=== PATIENT | male | born 1970 | race Caucasian/White ===

== ENCOUNTER 2017-10-17 06:38 | Day surgery (SDC) | payer OTHER ==
[2017-10-17] MEDS: CEFAZOLIN 2 GM/50 ML (PMX) 50 ML IVPB (06:00)
[2017-10-17] MEDS ORDERED: ACETAMINOPHEN 1000 MG/100 ML IVPB (07:00)
[2017-10-17] MEDS ORDERED: BUPIVACAINE 0.25% (MPF) 30 ML INJ (07:12)
[2017-10-17 07:35] LABS: ADD MAN DIFF? NO
[2017-10-17] MEDS: SOD CHLORIDE 0.9% 1,000 ML IV (07:35)
[2017-10-17 07:39] LABS: WHITE BLOOD COUNT 4.3 10^3/ul (4.8-10.8)
[2017-10-17 07:39] LABS: BASOPHILS % 0.5 % (0.0-2.0); EOSINOPHILS # 0.2 10^3/ul (0.0-0.5); EOSINOPHILS % 5.1 % (0.0-7.0); HEMATOCRIT 39.6 % (42.0-52.0); HEMOGLOBIN 13.7 g/dl (14.0-18.0); LYMPHOCYTES # 1.5 10^3/ul (0.8-2.9); LYMPHOCYTES % 34.3 % (15.0-51.0); MEAN CORPUSCULAR HEMOGLOBIN 30.4 pg (29.0-33.0); MEAN CORPUSCULAR HGB CONC 34.6 g/dl (32.0-37.0); MEAN CORPUSCULAR VOLUME 87.8 fl (82.0-101.0); MEAN PLATELET VOLUME 10.7 fl (7.4-10.4); MONOCYTE # 0.4 10^3/ul (0.3-0.9); MONOCYTES % 8.6 % (0.0-11.0); NEUTROPHIL # 2.2 10^3/ul (1.6-7.5); PLATELET COUNT 162 10^3/UL (140-415); RED BLOOD COUNT 4.51 10^6/ul (4.70-6.10); RED CELL DISTRIBUTION WIDTH 12.4 % (11.5-14.5)
[2017-10-17 07:49] LABS: HOLD TRANSMISSIONS 1
[2017-10-17 07:58] LABS: INR 0.95; PROTIME 12.8 Sec (11.9-14.9)
[2017-10-17 08:09] LABS: ALANINE AMINOTRANSFERASE 23 IU/L (13-69); ALBUMIN/GLOBULIN RATIO 1.21; ALKALINE PHOSPHATASE 53 IU/L (42-121); ANION GAP 10 (8-16); ASPARTATE AMINO TRANSFERASE 24 IU/L (15-46); BILIRUBIN,INDIRECT 0.8 mg/dl (0-1.1); BILIRUBIN,TOTAL 0.8 mg/dl (0.2-1.3); BLOOD UREA NITROGEN 16 mg/dl (7-20); CALCIUM 9.2 mg/dl (8.4-10.2); CARBON DIOXIDE 23 mmol/L (21-31); CHLORIDE 110 mmol/L (97-110); GLUCOSE 99 mg/dl (70-220); POTASSIUM 3.9 mmol/L (3.5-5.1); SODIUM 139 mmol/L (135-144); TOTAL PROTEIN 7.3 g/dl (6.1-8.1)
[2017-10-17] MEDS ORDERED: ROPIVACAINE 0.5 % 30 ML VIAL ×2 (08:25→08:43)
[2017-10-17] MEDS ORDERED: POLYMYXIN/BACITRACIN 1L IRRIG (08:41)
[2017-10-17] MEDS ORDERED: MIDAZOLAM 1 MG/ML 2 ML INJ (08:47)
[2017-10-17] MEDS ORDERED: FENTAnyl 50 MCG/ML VIAL ×2 (08:47→09:44)
[2017-10-17] MEDS ORDERED: LIDOCAINE 2% (SDV) 5 ML INJ (08:47)
[2017-10-17] MEDS ORDERED: PROPOFOL 20 ML (08:47)
[2017-10-17] MEDS ORDERED: SUCCINYLCHOLINE CHLORIDE 100 MG/5 ML SYG IV (08:47)
[2017-10-17] MEDS ORDERED: ROCURONIUM 50 MG INJ (08:47)
[2017-10-17] MEDS ORDERED: DIPHENHYDRAMINE 50 MG INJ IV (09:00)
[2017-10-17] MEDS ORDERED: HYDROmorphONE 1 MG/5 ML IV SYRINGE IV ×3 (09:00)
[2017-10-17] MEDS ORDERED: MEPERIDINE 25 MG INJ IV (09:00)
[2017-10-17] MEDS ORDERED: FENTAnyl 50 MCG/ML VIAL IV ×2 (09:00)
[2017-10-17] MEDS ORDERED: PROCHLORPERAZINE 10 MG INJ IV (09:00)
[2017-10-17] MEDS ORDERED: ONDANSETRON 4 MG INJ IV (09:00)
[2017-10-17] MEDS ORDERED: hydrALAzine 20 MG INJ IV (09:00)
[2017-10-17] MEDS ORDERED: LABETALOL HCL 20MG INJ IV (09:00)
[2017-10-17] MEDS ORDERED: CEFAZOLIN 1 GM INJ (09:09)
[2017-10-17] MEDS ORDERED: ONDANSETRON 4 MG INJ (09:14)
[2017-10-17] MEDS ORDERED: DEXAMETHASONE 4 MG/ML 1 ML INJ (09:14)
[2017-10-17] MEDS ORDERED: FAMOTIDINE 20 MG INJ (09:14)
[2017-10-17] MEDS: BUPIVACAINE 0.25% (MPF) 30 ML INJ INJ ×2 (09:42)
[2017-10-17] MEDS ORDERED: KETOROLAC 30 MG INJ (09:42)
[2017-10-17] MEDS ORDERED: SUGAMMADEX SODIUM 200 MG/2 ML VIAL IV (09:43)
[2017-10-17] MEDS: FENTAnyl 50 MCG/ML VIAL IV (10:42)
[2017-10-17] MEDS: OXYCODONE/ACETAMINOPHEN (5/325) TAB PO ×2 (10:48→12:13)
[2017-10-17] MEDS: HYDROCODONE/APAP (5/325) TAB PO (10:49)
== END 2017-10-17 12:16 | disposition home or self-care (01) ==
LOC: SDS 06:38
DX: K43.6 Other and unspecified ventral hernia with obstruction, without gangrene (principal)
CPT/HCPCS: 49653; 80053; 85025; 85610; 85730; 88302

== ENCOUNTER 2018-07-03 22:31 | Emergency (ER) | payer SELFPAY, OTHER ==
[2018-07-04] MEDS: CEFTRIAXONE 1 GM INJ IM (04:12)
[2018-07-04] MEDS: HYDROCODONE/APAP (10/325) TAB PO (04:13)
== END 2018-07-04 04:30 | disposition home or self-care (01) ==
LOC: FTE 22:31
DX: L03.113 Cellulitis of right upper limb (principal)
CPT/HCPCS: 73080; 73080-RT; 73090-RT; 87070; 96372; 99284-25